=== PATIENT | female | born 1965 | race Caucasian/White ===

== ENCOUNTER 2016-07-23 19:42 | Emergency (ER) | payer OTHER ==
[2016-07-23] MEDS ORDERED: ACETAMINOPHEN 325 MG TABLET PO ONE (20:16)
[2016-07-23] MEDS ORDERED: IBUPROFEN 400 MG TABLET PO ONE (20:17)
[2016-07-23] MEDS ORDERED: DIPHENHYDRAMINE 25 MG CAPSULE PO ONE (20:55)
[2016-07-23] MEDS ORDERED: ALBUTEROL 0.083% 2.5 MG/3 ML VIAL.NEB INHALATION ONE (20:55)
--- NOTE | 2016-07-23 21:04 | ER PHYSICIAN DOCUMENTATION ---
Physician Documentation [facility] Name:Gianna Sol Age:51 yrs Sex:Female :1965 Arrival Date:07/23/2016 Time:19:42 BedTrauma-A Private MD: Alfonso Lobo Disposition: 07/23 20:45 Critical Care: not applicable. sc Disposition: 07/23/16 20:45 Discharged to Home/Self Care. Impression: Influenza, COPD, Acute Allergic Reaction. - Condition is Good. - Discharge Instructions: ALLERGIC REACTION, Other (General), INFLUENZA (Adult). - Prescriptions for Albuterol Sulfate 2.5 mg /3 mL (0.083 %) Inhalation Solution for Nebulization - inhale 1 unit by NEBULIZATION route every 8 hours As needed; 1 box. Zithromax Z- David 250 mg Oral Tablet - take 1 tablet by ORAL route as directed for 5 days Day 1 - take two (2) tablets one time. Day 2, 3, 4 , 5 take one (1) tablet once daily.; 6 tablet. - Medical Reconciliation form form. - Follow up: Private Physician; When: 1 week; Reason: Continuance of care. - Problem is new. - Symptoms have improved. HPI: 20:39 This 51 yrs old Female presents to ER via Walk In with complaints of sc Breathing Difficulty. 20:39 The patient has shortness of breath at rest. Onset: The symptom(s)/episode sc began/occurred 2 day(s) ago. Duration: The symptoms are continuous. Associated signs and symptoms: Pertinent positives: non-productive cough, fever. father Thursday, also reacted to pro-air due to milk proteins. Historical: - Allergies: Advair Diskus; - Home Meds: 1. Claritin Oral 2. montelukast oral 3. proair 4. Flonase Nasal - PMHx: COPD; - PSHx: Appendectomy; - Tetanus: < 10 years. - Ebola Screening: : Patient denies exposure to infectious person. Patient denies travel to an Ebola-affected area in the 21 days before illness onset. . - Immunization history: Flu Vaccine < 1 year. - Social history: Smoking status: Patient states former smoker of tobacco. Patient uses alcohol only on a social basis. - Code Status:: Full code. ROS: 20:41 Eyes: Negative for injury, pain, redness, and discharge. sc Neck: Negative for injury, pain, and swelling. Cardiovascular: Negative for chest pain, palpitations, and edema. Abdomen/GI: Negative for abdominal pain, nausea, vomiting, diarrhea, and constipation. Back: Negative for injury and pain. MS/Extremity: Negative for injury and deformity. Skin: Negative for injury, rash, and discoloration. 20:41 Neuro: Negative for headache, weakness, numbness, tingling, and seizure. sc 20:41 Constitutional: Positive for fever. 20:41 ENT: Positive for nasal discharge. 20:41 Respiratory: Positive for cough, shortness of breath. Exam: Constitutional: This is a well developed, well nourished patient who is awake, alert, and in no acute distress. Head/Face: Normocephalic, atraumatic. Eyes: Pupils equal round and reactive to light, extra-ocular motions intact. Lids and lashes normal. Conjunctiva and sclera are non-icteric and not injected. Cornea within normal limits. Periorbital areas with no swelling, redness, or edema. ENT: Nares patent. No nasal discharge, no septal abnormalities noted. Tympanic membranes are normal and external auditory canals are clear. Oropharynx with no redness, swelling, or masses, exudates, or evidence of obstruction, uvula midline. Mucous membranes moist. Neck: Trachea midline, no thyromegaly or masses palpated, and no cervical lymphadenopathy. Supple, full range of motion without nuchal rigidity, or vertebral point tenderness. No meningismus. Chest/axilla: Normal chest wall appearance and motion. Nontender with no deformity. No lesions are appreciated. Abdomen/GI: Soft, non-tender, with normal bowel sounds. No distension or tympany. No guarding or rebound. No evidence of tenderness throughout. Back: No spinal tenderness. No costovertebral tenderness. Full range of motion. Skin: Warm, dry with normal turgor. Normal color with no rashes, no lesions, and no evidence of cellulitis. MS/ Extremity: Pulses equal, no cyanosis. Neurovascular intact. Full, normal range of motion, negative Homans's, calves equal bilaterally. 20:41 Neuro: Awake and alert, GCS 15, oriented to person, place, time, and situation. sc Cranial nerves II-XII grossly intact. Motor strength 5/5 in all extremities. Sensory grossly intact. Cerebellar exam normal. Normal gait. 20:41 Cardiovascular: Rate: tachycardic, Rhythm: regular. 20:41 Respiratory: the patient does not display signs of respiratory distress, Respirations: normal, Breath sounds: are normal, clear throughout. Vital Signs: 19:57 BP 186 / 112; Pulse 121; Resp 20; Temp 100(TE); Pulse Ox 95% on R/A; Weight 117.93 kg; lb Height 5 ft. 7 in. (170.18 cm); Pain 0/10; 20:49 BP 206 / 112; lb 21:02 BP 190 / 100; Pulse Ox 95% on R/A; lb 19:57 Body Mass Index 40.72 (117.93 kg, 170.18 cm) lb MDM: 19:44 Patient medically screened. sc 20:44 Differential diagnosis: asthma, Chronic Obstructive Pulmonary Disease allergic sc reaction. Antibiotic administration: Not indicated. Data reviewed: vital signs, nurses notes, and as a result, I will continue to observe the patient. Data interpreted: Pulse oximetry: on room air is 95 %. Counseling: I had a detailed discussion with the patient and/or guardian regarding: the historical points, exam findings, and any diagnostic results supporting the discharge/admit diagnosis, the need for outpatient follow up, to return to the emergency department if symptoms worsen or persist or if there are any questions or concerns that arise at home. Medication response: The patient's symptoms have improved. 07/23 20:35 Order name: INFLUENZA A/B EDMS Dispensed Medications: 20:07 Drug: Ibuprofen 800 mg; Route: PO; lb 21:01 Follow up: Response: Pain is decreased lb 20:07 Drug: Tylenol 975 mg; Route: PO; lb 21:02 Follow up: Response: Pain is decreased lb 20:49 Drug: Benadryl 50 mg; Route: PO; lb 21:02 Follow up: Response: No adverse reaction lb 20:49 Drug: Albuterol 2.5 mg; Route: Inhalation; lb 21:02 Follow up: Response: Marked relief of symptoms lb Signatures: Alfonso Barry MD MD sc Bollock, Lynda lb
--- NOTE | 2016-07-23 21:04 | ER NURSING DOCUMENTATION ---
Nurse's Notes [facility] Name:Gianna Sol Age:51 yrs Sex:Female :1965 Arrival Date:07/23/2016 Time:19:42 BedTrauma-A Private MD: Diagnosis:Influenza;COPD;Acute Allergic Reaction Presentation: 07/23 19:54 Presenting complaint: Patient states: short of breath, chest feels tight. pt thinks she lb is having allergic reaction to inhaler proair. Transition of care: patient was not received from another setting of care. Notified ED Physician of Dr. Barry notified. 19:54 Acuity: ADEOLA 3 lb 19:54 Method Of Arrival: Walk In lb Triage Assessment: 19:56 General: Appears distressed, Behavior is appropriate for age. Pain: Denies pain. lb Respiratory: Airway is patent Trachea midline Respiratory effort is even, Respiratory pattern is regular, Breath sounds are clear bilaterally. Reports shortness of breath Onset: The symptoms/episode began/occurred 4 days ago, the patient has mild shortness of breath. Historical: - Allergies: Advair Diskus; - Home Meds: 1. Claritin Oral 2. montelukast oral 3. proair 4. Flonase Nasal - PMHx: COPD; - PSHx: Appendectomy; - Tetanus: < 10 years. - Ebola Screening: : Patient denies exposure to infectious person. Patient denies travel to an Ebola-affected area in the 21 days before illness onset. . - Immunization history: Flu Vaccine < 1 year. - Social history: Smoking status: Patient states former smoker of tobacco. Patient uses alcohol only on a social basis. - Code Status:: Full code. Screenin:58 Infectious Disease Risk None. Abuse screen: Denies threats or abuse. Denies injuries lb from another. Nutritional screening: No deficits noted. Assessment: 19:57 Cardiovascular: No deficits noted. Rhythm is sinus tachycardia. lb Vital Signs: 19:57 BP 186 / 112; Pulse 121; Resp 20; Temp 100(TE); Pulse Ox 95% on R/A; Weight 117.93 kg; lb Height 5 ft. 7 in. (170.18 cm); Pain 0/10; 20:49 BP 206 / 112; lb 21:02 BP 190 / 100; Pulse Ox 95% on R/A; lb 19:57 Body Mass Index 40.72 (117.93 kg, 170.18 cm) ED Course: 19:44 Patient arrived in ED. ma1 19:44 Alfonso Barry MD is Attending Physician. susanne 19:54 Leonora Vazquez is Primary Nurse. 19:55 Triage completed. lb 19:58 Valuables Remains with patient. lb Administered Medications: 20:07 Drug: Ibuprofen 800 mg; Route: PO; lb 21:01 Follow up: Response: Pain is decreased lb 20:07 Drug: Tylenol 975 mg; Route: PO; lb 21:02 Follow up: Response: Pain is decreased lb 20:49 Drug: Benadryl 50 mg; Route: PO; 21:02 Follow up: Response: No adverse reaction lb 20:49 Drug: Albuterol 2.5 mg; Route: Inhalation; 21:02 Follow up: Response: Marked relief of symptoms Outcome: 20:45 Discharge ordered by MD. sd 21:02 Discharged to home ambulatory. 21:02 Condition: stable 21:02 Discharge Assessment: Patient awake, alert and oriented x 3. No cognitive and/or functional deficits noted. Patient verbalized understanding of disposition instructions. 21:02 Instructed on discharge instructions, follow up and referral plans. 21:03 Patient left the ED. 07/24 11:37 Discharge F/U Call: Spoke with: patient. Have you filled your prescriptions? yes. Did lp your discharge instructions answer all of your questions? yes Have you made a f/u appointment? yes Overall Care on a scale of 1-10 with 10 being the best care, you rate our care as: the rating of 10. Signatures: Olimpia Fernandez RN RN Alfonso Barry MD MD sc Bollock, Lynda RinggoldIdalia daleyissa [facility]
== END 2016-07-23 21:03 | disposition home or self-care (01) ==
LOC: ER 19:42
DX: J11.1 Influenza due to unidentified influenza virus with other respiratory manifestations (principal); J44.9 Chronic obstructive pulmonary disease, unspecified; T48.6X5A Adverse effect of antiasthmatics, initial encounter; R06.02 Shortness of breath; Z79.899 Other long term (current) drug therapy
CPT/HCPCS: 87449; 94640; 99284; J7613; Q0163